=== PATIENT | female | born 1990 | race Two or more races ===

== ENCOUNTER 2024-01-21 08:25 | Emergency (ER) | payer MEDICAID, OTHER ==
[~2024-01-21] VITALS: Ht 165.1 cm; Wt 63.0 kg
--- NOTE | 2024-01-21 08:51 | ED.PDOC ---
History of Present Illness HPI Comments 33 year old female presents to the ED with chief complaint of chest pain. Patient reports that she has been experiencing left sided intermittent chest pain for approximately a month now. Patient relays that her pain is notably worsened when under stress or feeling anxious. Patient denies any SOB, dizziness, cough, headache, N/V, or blurred vision. Chief Complaint: Chest Pain Time Seen by MD: 08:49 Reviewed Notes: Nurses Notes, Medications, Allergies Allergies: Coded Allergies: NO KNOWN ALLERGIES (Unverified , 01/21/24) Information Source: Patient Mode of Arrival: Ambulatory Severity: Moderate Timing: Months Duration: Intermittent Prehospital treatment: None Past Medical History PAST MEDICAL HISTORY: Denies Surgical History: Denies all surgeries COPYING MACHINE MECHANIC History: No Pertinent COPYING MACHINE MECHANIC History Family History Family History: Reviewed,noncontributory to illness Social History Smoker: Non-Smoker Alcohol: Denies ETOH Use Drugs: Denies Drug Use Lives In: Home Constitutional: denies: chills, diaphoresis, fatigue, fever, malaise, sweats, weakness, others EENTM: denies: blurred vision, double vision, ear bleeding, ear discharge, ear drainage, ear pain, ear ringing, eye pain, eye redness, hearing loss, mouth pain, mouth swelling, nasal discharge, nose bleeding, nose congestion, nose pain, photophobia, tearing, throat pain, throat swelling, voice changes, others Respiratory: denies: cough, hemoptysis, orthopnea, SOB at rest, shortness of breath, SOB with excertion, stridor, wheezing, others Cardiovascular: reports: chest pain; denies: dizzy spells, diaphoresis, Dyspnea on exertion, edema, irregular heart beat, left arm pain, lightheadedness, palpitations, PND, syncope, others Gastrointestinal: denies: abdomen distended, abdominal pain, blood streaked bowels, constipated, diarrhea, dysphagia, difficulty swallowing, hematemesis, melena, nausea, poor appetite, poor fluid intake, rectal bleeding, rectal pain, vomiting, others Genitourinary: denies: abnormal vagina bleeding, burning, dyspareunia, dysuria, flank pain, frequency, hematuria, incontinence, pain, , vagina discharge, urgency, others Neurological: denies: dizziness, fainting, headache, left sided numbness, left sided weakness, numbness, paresthesia, pre-existing deficit, right sided numbness, right sided weakness, seizure, speech problems, tingling, tremors, weakness, others Musculoskeletal: denies: back pain, gout, joint pain, joint swelling, muscle pain, muscle stiffness, neck pain, others Integumetry: denies: bruises, change in color, change in hair/nails, dryness, laceration, lesions, lumps, rash, wounds, others Allergic/Immunocompromised: denies: Difficulty Healing, Frequent Infections, Hives, Itching, others Hematologic/Lymphatic: denies: anemia, blood clots, easy bleeding, easy bruising, swollen glands, others Endocrine: denies: excessive hunger, excessive sweating, excessive thirst, excessive urination, flushing, intolerance to cold, intolerance to heat, unexplained weight gain, unexplained weight loss, others Psychiatric: reports: anxiety; denies: bipolar disorder, depression, hopeless, panic disorder, schizophrenia, sleepless, suicidal, others All Other Systems: Reviewed and Negative Physical Exam General Appearance: Moderate Distress, Normal HEENT: Normal ENT Inspection, PERRL/EOMI Neck: Full Range of Motion, Non-Tender, Normal, Normal Inspection Respiratory: Chest Non-Tender, Lungs Clear, No Accessory Muscle Use, No Respiratory Distress, Normal Breath Sounds Cardiovascular: No Edema, No JVD, No Murmur, No Gallop, Normal Peripheral Pulses, Regular Rate/Rhythm Breast Exam: Deferred Gastrointestinal: No Organomegaly, Non Tender, No Pulsatile Mass, Normal Bowel Sounds, Soft Genitalia: Deferred Pelvic: Deferred Rectal: Deferred Extremities: No calf tenderness, Normal capillary refill, Normal inspection, Normal range of motion, Non-tender, No pedal edema Musculoskeletal : Apperance: Normal Neurologic: Alert, cabinet assembler II-XII nml as Tested, No Motor Deficits, Normal Affect, Normal Mood, No Sensory Deficits Cerebellar Function: Normal Reflexes: Normal Skin: Dry, Normal Color, Warm Peripheral Pulses: 3+ Radial (R), 3+ Radial (L) Lymphatic: No Adenopathy Was a procedure done? Was a procedure done?: No Differential Dx Considerations may include: Anxiety Electrolyte imbalance X-Ray, Labs, Meds, VS Vital Signs Date Time Temp Pulse Resp B/P (MAP) Pulse Ox O2 Delivery O2 Flow Rate FiO2 01/21/24 13:20 76 18 125/78 (94) 99 01/21/24 09:28 74 01/21/24 09:02 97.9 82 17 123/83 (96) 99 97.9 01/21/24 09:02 74 17 99 Room Air* 0 21 01/21/24 08:47 80 01/21/24 08:43 97.9 89 18 122/87 (99) 99 Lab Test 01/21/24 08:34 Range/Units White Blood Count 5.2 4.4-10.8 10^3/uL Red Blood Count 4.42 4.0-5.20 10^6/uL Hemoglobin 13.7 12.2-16.2 g/dL Hematocrit 39.4 36.0-46.0 % Mean Corpuscular Volume 89.3 80.0-100.0 fL Mean Corpuscular Hemoglobin 30.9 28.0-32.0 pg Mean Corpuscular Hemoglobin Concent 34.6 32.0-36.0 g/dL Red Cell Distribution Width 15.1 H 11.8-14.3 % Platelet Count 292 140-450 10^3/uL Mean Platelet Volume 7.7 6.9-10.8 fL Neutrophils (%) (Auto) 60.0 37.0-80.0 % Lymphocytes (%) (Auto) 29.6 10.0-50.0 % Monocytes (%) (Auto) 9.3 0.0-12.0 % Eosinophils (%) (Auto) 0.5 0.0-7.0 % Basophils (%) (Auto) 0.6 0.0-2.0 % Neutrophils # (Auto) 3.1 1.6-8.6 10 ^3/uL Lymphocytes # (Auto) 1.5 0.4-5.4 10 ^3/uL Monocytes # (Auto) 0.5 0-1.3 10 ^3/uL Eosinophils # (Auto) 0 0-0.8 10 ^3/uL Basophils # (Auto) 0 0-0.2 10 ^3/uL Nucleated Red Blood Cells 0.0 % Troponin I High Sensitivity < 3 L </=34 ng/L Patient alert. Came in because of chest discomfort. Vitals stable. Answering all questions. EKG reviewed does not show any acute process. Possible anxiety. WBC within normal limits. Hemoglobin within normal limits. Saturation pristine on room air. Cardiac marker within normal limits. Explained to the patient. Was told to follow up with her primary care physician. Was told to come back if there is any problem. Time of 1ST Reevaluation: 09:49 Reevaluation 1ST: Unchanged Patient Education/Counseling: Diagnosis, Treatment Family Education/Counseling: No Family Present Departure 1 Departure Time of Disposition: 12:52 Impression: Primary Impression: Musculoskeletal chest pain Additional Impression: Anxiety Disposition: 01 HOME / SELF CARE / HOMELESS Condition: Good Discharged With: Self Critical Care Note Critical Care Time?: No Stability Stability form required: No Heart Score Heart Score: Heart Score Response (Comments) Value History Moderate Suspicious 1 EKG Normal 0 Age <45 0 Risk Factors No known risk factors 0 Troponin Normal limit 0 Total 1 I personally scribed for GEM MCCLOUD MD ([email or web address]) on 01/21/24 at 08:51. Electronically submitted by Blayne Gonzalez ([email or web address]). GEM MCCLOUD MD Jan 21, 2024 08:51
[2024-01-21 09:02] VITALS: PULSE 74; RESP 17; TEMP 97.9; O2SAT 99
[2024-01-21 09:05] LABS: Basophils # (auto) 0 10 ^3/uL (0-0.2); Basophils % (auto) 0.6 % (0.0-2.0); Eosinophils # (auto) 0 10 ^3/uL (0-0.8); Eosinophils % (auto) 0.5 % (0.0-7.0); Hematocrit 39.4 % (36.0-46.0); Hemoglobin 13.7 g/dL (12.2-16.2); Lymphocytes # (auto) 1.5 10 ^3/uL (0.4-5.4); Lymphocytes % (auto) 29.6 % (10.0-50.0); Mean Corpuscular Hemoglobin 30.9 pg (28.0-32.0); Mean Corpuscular Hgb Conc. 34.6 g/dL (32.0-36.0); Mean Corpuscular Volume 89.3 fL (80.0-100.0); Monocytes # (auto) 0.5 10 ^3/uL (0-1.3); Monocytes % (auto) 9.3 % (0.0-12.0); Neutrophils # (auto) 3.1 10 ^3/uL (1.6-8.6); Platelet Count (auto) 292 10^3/uL (140-450); Red Blood Cells 4.42 10^6/uL (4.0-5.20); Red Cell Distribution Width 15.1 % (11.8-14.3); White Blood Cell 5.2 10^3/uL (4.4-10.8)
[2024-01-21] MEDS: ASPirin 325 MG TAB PO ONE (09:05)
[2024-01-21 13:20] VITALS: BP 125/78; PULSE 76; RESP 18; O2SAT 99
--- NOTE | 2024-01-21 19:00 | ECG ---
[facility] Test Date: 2024-01-21 Test Time: 09:28:50 Pat Name: SHA DE LA CRUZ Department: ED Room: Gender: F Art Educator: JONY : 1990 Requested By: GEM MCCLOUD Order Number: [id number] Reading MD: Chong Garcia Measurements Intervals Andreas Rate: 74 P: 59 OK: 129 QRS: -19 QRSD: 83 T: 16 QT: 373 QTc: 414 Interpretive Statements Sinus rhythm Probable left atrial enlargement Borderline left axis deviation Low voltage, precordial leads Electronically Signed On 01-27-2024 13:22:33 PST by Chong Garcia Please click the below link to view image of tracing.
--- NOTE | 2024-01-24 13:52 | ECG ---
[facility] Test Date: 2024-01-21 Test Time: 08:30:49 Pat Name: SHA DE LA CRUZ Department: ER Room: Gender: F Alliances Consultant: DEL : 1990 Requested By: GEM MCCLOUD Order Number: [id number] Reading MD: Chong Garcia Measurements Intervals [place] Rate: 80 P: 59 OH: 134 QRS: -38 QRSD: 84 T: 24 QT: 374 QTc: 432 Interpretive Statements Sinus rhythm Probable left atrial enlargement Left axis deviation Low voltage, precordial leads RSR' in V1 or V2, probably normal variant Borderline T abnormalities, anterior leads Electronically Signed On 01-27-2024 13:22:04 PST by Chong Garcia Please click the below link to view image of tracing.
== END 2024-01-21 13:24 | disposition home or self-care (01) ==
LOC: ER 08:25
DX: R07.89 Other chest pain (principal); F41.9 Anxiety disorder, unspecified
CPT/HCPCS: 36415; 84484; 85025; 93005

== ENCOUNTER → 2024-02-22 | Outpatient (CLI) | payer MEDICAID ==
[2024-02-22 08:24] VITALS: BP 124/76; PULSE 76; RESP 16
--- NOTE | 2024-02-22 08:52 | DVHCARD ---
Cardiology Stress Test [place] Treadmill Stress Test [place] Referring MD: Daniella Montesinos MD Protocol: Miguel (without cardiolite) Reason for referral: Chest Pain Target heart Rate:@85%: 160 Percent MPHR: 189 METS: 10.10 Resting Heart rate: 76 Resting Blood Pressure: 124/76 Exercise Heart Rate: 141 Exercise Blood Pressure: 183/88 Reason for Termination of Test: Completion of Protocol Baseline EKG: NSR Stress EKG: Sinus tachycardia w/o discernible ST-segment changes Functional Capacity: Good Normal Heart Rate Response: Adequate Blood Pressure Response: Hypertensive Clinical response: Non-ischemic Arrhythmia?: No Cardiolite Injected?: No ST-T Changes: Non/Minimal Probability of Inducible Ische: Low Comments: Uneventful miguel protocol. Optimal functional capacity. Date of Service: Feb 22, 2024 Billing Provider: DANIELLA MONTESINOS MD Cardiology Common Codes: PROCEDURE ONLY Treadmill w/o Cardiolite: [id number], INTERP, RPT [facility] Feb 22, 2024 08:52
== END | disposition home or self-care (01) ==
LOC: XYW 08:12
PROVIDERS: ATTEND Student in an Organized Health Care Education/Training Program
DX: R00.0 Tachycardia, unspecified (principal); R07.9 Chest pain, unspecified
CPT/HCPCS: 93017

== ENCOUNTER → 2024-12-29 | Outpatient (CLI) | payer MEDICAID ==
[2024-12-29 10:29] LABS: Hematocrit 31.1 % (36.0-46.0); Hemoglobin 10.1 g/dL (12.2-16.2); Mean Corpuscular Hemoglobin 27.2 pg (28.0-32.0); Mean Corpuscular Volume 83.4 fL (80.0-100.0); Nucleated Red Blood Cells % 0.1 %
[2024-12-30 17:07] LABS: Chlamydia Trachomatis, NAA Negative (Negative); Neisseria gonorrhoeae, NAA Negative (Negative)
== END | disposition home or self-care (01) ==
LOC: LAB 10:11
PROVIDERS: ATTEND Obstetrics & Gynecology
DX: Z34.83 Encounter for supervision of other normal pregnancy, third trimester (principal); Z3A.00 Weeks of gestation of pregnancy not specified
CPT/HCPCS: 36415; 85025; 86780

== ENCOUNTER 2025-01-17 06:52 | Inpatient (IN) | payer MEDICAID ==
[~2025-01-17] VITALS: Ht 30.5 cm; Wt 0.5 kg
[2025-01-17 10:27] LABS: Hemoglobin 9.9 g/dL (12.2-16.2)
[2025-01-17 10:29] LABS: Hematocrit 29.8 % (36.0-46.0); Mean Corpuscular Hemoglobin 27.2 pg (28.0-32.0); Mean Corpuscular Volume 82.3 fL (80.0-100.0); Nucleated Red Blood Cells % 0.1 %
[2025-01-17 10:42] LABS: INR 0.89 (0.9-1.15); Partial Thromboplastin Time 24.5 SEC (24.5-34.5); Prothrombin Time 9.5 sec (9.3-11.8)
[2025-01-17 10:45] LABS: Albumin 3.7 g/dL (3.2-4.8); Anion Gap 11 (5-15); BUN/Creatinine Ratio 12.2 (10.0-20.0); Blood Urea Nitrogen 9 mg/dL (9-23); Calcium 8.7 mg/dL (8.7-10.4); Carbon Dioxide 23 mmol/L (20-31); Chloride 105 mmol/L (98-107); Glucose 82 mg/dL (74-106); Potassium 3.8 mmol/L (3.5-5.1); Sodium 139 mmol/L (136-145); Total Protein 6.6 g/dL (5.7-8.2)
[2025-01-17 10:46] LABS: Bilirubin, Total 0.3 mg/dL (0.2-1.0)
[2025-01-17 10:48] LABS: Alanine Aminotransferase < 9 U/L (7-40); Alkaline Phosphatase 181 U/L (46-116)
[2025-01-17 11:16] LABS: Urine Protein, UAD TRACE (Negative)
[2025-01-17 11:38] LABS: Amphetamine Screen, Urine Neg (NEGATIVE); Barbiturate Scree,Urine Neg (NEGATIVE); Benzodiazephine Screen, Urine Neg (NEGATIVE); Cannabinoid Screen, Urine Neg (NEGATIVE); Cocaine Screen, Urine Neg (NEGATIVE); Opiate Scree,Urine Neg (NEGATIVE); Phencyclidine Screen, Urine Neg (NEGATIVE)
[2025-01-18 21:33] LABS: Protein, Urine 26.1 mg/dL (1-14)
[2025-01-19] VITALS (14 sets, daily range): BP systolic 90–118; BP diastolic 48–70; PULSE 52–74; RESP 14–60; TEMP 98–98.7; O2SAT 95–100
--- NOTE | 2025-01-19 07:04 | DVHHP2 ---
OB CC & HPI Date Date of Admission: Jan 19, 2025 Patient Identification: : 3 Para: 2 EDC: Jan 28, 2025 EGA: 38+WKS Chief Complaints: Reason for admission: other (LABOR) Indication for : desires repeat Admission Nurse Assessment Rev: No History of Present Complaints PT IS ADMITTED FOR RCS ,SHE IS IN EARLY LABOR AND DESIRES TO HAVE RCS Past Medical History Cardiac: No pertinent Hx Pulmonary: No pertinent Hx Central Nervous System: No pertinent Hx GI: No pertinent Hx Hemotology/Oncology: No pertinent Hx Hepatobiliary: No pertinent Hx Psychiatric: No pertinent Hx Musculoskeletal: No pertinent Hx Rheumotologic: No pertinent Hx Infectious Disease: No peritnent Hx ENT: No pertinent Hx Renal/: No pertinent Hx Endocrine: No pertinent Hx Dermatology: No pertinent Hx Past Surgical History: OB History OB History Care: Good Care Ultrasounds: Normal mid trimester US Obstetrical Complications: None Medical Complications: None Allergies: Coded Allergies: NO KNOWN ALLERGIES (Unverified , 01/21/24) Current Medications Current Medications Medications (Trade) Dose Ordered Sig/Jeff Route PRN Reason Start Time Stop Time Status Last Admin Lactated Ringer's 1,000 ml @ 125 mls/hr Q8H IV 01/19/25 06:30 Family & Social History Family/Social History Blood Type: Unknown Rubella: unknown RPR/VDRL: Negative GBS Status: Negative HBsAG: Negative Review of Systems Constitutional: No symptom reported Ears, Nose, & Throat: No symptom reported Eyes: No symptom reported Pulmonary/Respiratory: No symptom reported Cardiovascular: No symptom reported Gastrointestinal: No symptom reported Genitourinary: No symptom reported Musculoskeletal: No symptom reported Skin: No symptom reported Psychiatric: No symptom reported Endocrine: No symptom reported Hemotologic/Lymphatic: No symptom reported OB Admission Exam Physical Exam HEENT: TMs Normal, Fontanelles Normal, Nasal Mucosa Normal, Eyes non-injected, Oropharynx Normal, PERRLA, Moist Membranes, EOMI Heart: Rhythm Normal Lungs: Clear Abdomen: Non tender Extremities: Normal Reflexes: Normal Cervical Dilatation: 1cm Effacement: 25% Station: -3 Membranes: Intact Heart Rate: 130's Accelerations: Accelerations Present Decelerations: No Decelerations Short Term Variability: Present Scow Derrick Operator Variability: Average (6-25) Contractions on Admission: 6-10 Minutes Apart Intensity: Moderate OB Plan Plan Admitting Diagnosis: repeat IN EARLY LABOR Plan: Section Other Plan: INFORMED CONSENT OBTAINED Visit Coding OBGYN Date of Service: Jan 19, 2025 Billing Provider: JOSEFA GOLDSMITH DO PAN WASHER HAND Common Visit Codes: 70417-UHGYQPI INP/OBS CARE (HIGH) PAN WASHER HAND Procedure Codes: 08397-49- NON-STRESS TEST JOSEFA GOLDSMITH DO Jan 19, 2025 07:04
[2025-01-19] MEDS: TETRACAINE 1% INJ 2 ML VIAL IJ ONE (09:33)
[2025-01-19] MEDS ORDERED: MIDAZOLAM HCL 2MG/2ML 2ml VIAL (1mg/ml) ONE (09:38)
[2025-01-19] MEDS ORDERED: fentaNYL CITRATE 100 MCG/2 ML VL ONE (09:38)
[2025-01-19] MEDS ORDERED: ONDANSETRON HCL 4 MG/2 ML VIAL ONE (09:39)
[2025-01-19] MEDS ORDERED: SODIUM CHLORIDE LOCK 10 ML ONE (09:39)
[2025-01-19] MEDS ORDERED: MORPHINE SULF PF 5 MG/10 ML VIAL ONE (09:39)
[2025-01-19] MEDS: LACTATED RINGER'S 1,000 ML IV SCH (09:55)
[2025-01-19] MEDS: ceFAZolin 2 GM/D5W50ml 50 ML IV ONE (09:55)
[2025-01-19] MEDS ORDERED: BUPIVACAINE/DEXTROSE MPF 0.75% 2 ML AMP IT ONE (09:56)
[2025-01-19] MEDS ORDERED: METOCLOPRAMIDE HCL 5MG/ml INJ 2ml VIAL IV PRN (11:15)
[2025-01-19] MEDS ORDERED: NALOXONE HCL 0.4 MG/ML VIAL IV PRN (11:15)
[2025-01-19] MEDS ORDERED: MORPHINE SULFATE 4 MG/ML SYR/VIAL IV PRN (11:15)
[2025-01-19] MEDS ORDERED: MORPHINE SULFATE INJ 2 MG/ml SYRG IV PRN (11:15)
[2025-01-19] MEDS ORDERED: HYDROmorphone HCL 2 MG/ML VL/or syr IV PRN ×2 (11:15)
[2025-01-19] MEDS: KETOROLAC TROMETH 30 MG/ML 1ML VIAL IV ONE (11:15)
[2025-01-19] MEDS ORDERED: diphenhydrAMINE HCL 50 MG/1 ML VL IV PRN (11:15)
--- NOTE | 2025-01-19 13:13 | DVHOP2 ---
Operative Report DATE OF OPERATION:01/19/25 PREOPERATIVE DIAGNOSES: [iup at 38+wks in labor,previous csx1 desires rcs] POSTOPERATIVE DIAGNOSES: [same] OPERATION PERFORMED: Repeat Section FINDINGS: [b] infant. Apgars of [8] and [9]. Weight [clear] crying tone. [good] amniotic fluid. Placenta and three-vessel were intact. Normal tubes, ovaries, and uterus. SURGEON: Deidre Marshall D.O. DOGMAN/WOMAN: railway signal technician, darlene]. ANESTHESIOLOGIST: Ophelia orr ANESTHESIA: [Duramorph spinal, regional]. COMPLICATIONS: [none]. ESTIMATED BLOOD LOSS: [500] mL. BLOOD PRODUCTS USED: [none]. PROCEDURE IN DETAIL: The patient was taken to the operating room, placed in sitting position, and spinal was placed without difficulty. She was then prepped and draped in a sterile fashion. A low Pfannenstiel incision was made scapel. At this point, it was carried down through the rectus fascia, nicked in the midline, and carried laterally. The rectus muscles were in the midline. Peritoneum was identified and entered with sharp dissection. Vesicouterine peritoneum was taken off the lower uterine segment. A lower uterine transverse incision was made with a scalpel down the chorionic membranes, ruptured with hemostat. was in vertex position. One hand was placed in the lower uterine segment. Head was essentially delivered spontaneously. Nose and mouth were bulb suctioned. Shoulders and torso were delivered without difficulty. Again, pharynx, nose, and mouth were re-suctioned with vigorous crying tone. Cord was cut. The infant was handed off to the awaiting Respiratory. At this point, umbilical blood sample was taken. Placenta was removed. Uterus was exteriorized, cleared off all clots and debris, irrigated, and closed with a double layer of 0-Vicryl. The vesicouterine peritoneum was incorporated into this closure. We had complete hemostasis. EBL was [500] mL. The instrument, lap, and sponge count was correct x1. The uterus was placed back into the peritoneum. The peritoneal cavity was re-inspected and the lower uterine incision with good hemostasis. We closed the peritoneum with running continuous of 2-0 Vicryl. The Rectus Fascia was closed with 0-PDS, running continuous, looped-0. The skin was closed undermined, irrigated, and close with basilio. CONDITION: The patient's and the infant's condition is stable and but guarded. Visit Coding OBGYN Date of Service: Jan 19, 2025 Billing Provider: DEIDRE MARSHALL DO SPORTS BOOK BOARD ATTENDANT Common Visit Codes: 80327-CZGTQDC OBS CARE (HIGH) SPORTS BOOK BOARD ATTENDANT Procedure Codes: [id number] DELIVERY ONLY DEIDRE MARSHALL DO Jan 19, 2025 13:13
--- NOTE | 2025-01-19 13:15 | POSTOP ---
Post-Operative Note Post-Operative Note Preop Diagnosis iup at 38wks in labor,desires rcs Postop Diagnosis: same Operation performed rcs Specimen baby boy,apgars 8-9,vx Anesthesia: Regional Anesthesiologist: spinal Blood Loss(fluid mgmt) 500ml Surgeon Josefa Marshall Jig And Fixture Maker luis angel Implant na Complications & Mgmt none Date 01/19/25 Time 13:13 Visit Coding OBGYN Date of Service: Jan 19, 2025 Billing Provider: JOSEFA MARSHALL DO RAILWAY SIGNAL TECHNICIAN Common Visit Codes: 71224-SLWMEDF OBS CARE (HIGH) RAILWAY SIGNAL TECHNICIAN Procedure Codes: [id number] DELIVERY ONLY JOSEFA MARSHALL DO Jan 19, 2025 13:15
[2025-01-19] MEDS ORDERED: HYDR-4072 PO (13:41)
[2025-01-19] MEDS ORDERED: IBUP-1456 PO (13:41)
[2025-01-19] MEDS ORDERED: DOCU-94 PO (13:41)
[2025-01-19] MEDS: LACTATED RINGER'S 1,000 ML IV ONE (15:38)
[2025-01-19] MEDS: ACETAMINOPHEN IV 1000 MG/100ML (10MG/ML) IV PRN (17:19)
[2025-01-19] MEDS: ceFAZolin 1GM/50ML 50 ML IV SCH (18:40)
[2025-01-20] VITALS (14 sets, daily range): BP systolic 91–117; BP diastolic 52–75; PULSE 59–69; RESP 14–20; TEMP 98.1–98.6; O2SAT 96–100
--- NOTE | 2025-01-20 06:45 | DVHPN2 ---
Progress Note Date Seen: Jan 20, 2025 Subjective PP Note C- Section 34 y/o now (3,0,0,3) Post operative & ppd # 1 s/p Repeat Section and doing well. Delivery of viable male 01/19/2025 @ 1024 Total QBL 650 Subjective Lochia minimal. Advancing Clear liquid Ji removed Pain relieved with IV analgesics. Passing flatus but no BM yet. Formula feeding infant Objective Afebrile, VSS Chest: heart and lung sounds normal. Breasts: Nipples intact w/o cracks or soreness Abdomen: soft, moderate tenderness with palpation , mild rebound fundus firm @ Umbilicus -1, Lower abdominal Incision site with Sylke dressing clean, dry and intact. Edges in good approximation. No edema, erythema or induration, no saturation noted Extremities: no edema or tenderness Lochia - minimal Labs Assessment/Plan: Blood Type: O Rh: Positive Formula feeding Rubella Non Immune GBS:Unknown Pain control with IV Medications Bowel regimen: Increase fluid intake and fiber in diet, Laxative PRN PP BCM Plan: Continue with p.o.c vital signs Vital Sign Date Time Temp Pulse Resp B/P (MAP) Pulse Ox O2 Delivery O2 Flow Rate FiO2 01/20/25 05:00 62 15 100/62 (75) 99 01/19/25 23:00 98.3 98.3 01/19/25 19:00 Room Air 01/19/25 11:08 0 01/19/25 11:08 99 Total Intake and Output 01/19/25 01/19/25 01/20/25 15:00 23:00 07:00 Output Total 1380 ml 1400 ml Balance -1380 ml -1400 ml medications Current Medications Medications Dose Ordered Sig/Jeff Route Start Time Stop Time Status Last Admin Dose Admin Lactated Ringer's 1,000 ml @ 125 mls/hr Q8H IV 01/19/25 06:30 01/20/25 02:21 125 MLS/HR Diphenhydramine HCl 25 mg Q4HP PRN IV 01/19/25 11:15 Acetaminophen 1,000 mg Q8H PRN IV 01/19/25 16:00 01/19/25 17:19 1,000 MG Cefazolin Sodium 50 ml @ 100 mls/hr Q8HR IV 01/19/25 18:00 01/20/25 02:17 100 MLS/HR laboratory and microbiology Laboratory Tests 01/17/25 09:55 Test 01/17/25 09:55 Range/Units Serum Glucose 82 74-106 mg/dL Objective O: AFVSS Chest: heart and lung sounds normal. Abd soft, non-tender, fundus firm, BS, no rebound or guarding, Incision - dressing and incision clean, dry, intact Ext Neg Homans, Non-tender, edema Lochia - minimal Labs Problems(with codes): (1) Status post repeat low transverse section Assessment/Plan __ yo G_P_ ppd#_ s/p /VAVD doing well. Rh status +/- Rhophylac Breast/bottle feeding Rubella status if needs MMR prior to d/c Pain control with PO medications Bowel regimen Discharge plan: [ ] Plan discussed with: Patient Visit Coding OBGYN Date of Service: Jan 20, 2025 Billing Provider: KARIS JARVIS CNM MERCHANDISE DIRECTOR Common Visit Codes: 22739-[id number] OBS CARE (HIGH), 53086-MMKOBMQ INP/OBS CARE (LOW) KARIS JARVISMNov 2024 06:45
[2025-01-20 09:23] LABS: Hematocrit 28.7 % (36.0-46.0); Hemoglobin 9.4 g/dL (12.2-16.2); Mean Corpuscular Hemoglobin 27.0 pg (28.0-32.0); Mean Corpuscular Volume 82.5 fL (80.0-100.0); Nucleated Red Blood Cells % 0.0 %
[2025-01-20] MEDS ORDERED: IBUPROFEN 800 MG TAB PO PRN (10:30)
[2025-01-20] MEDS ORDERED: HYDROcodone-ACET 5/325MG TAB PO PRN ×2 (10:30)
[2025-01-20] MEDS: SIMETHICONE 80 MG CHEWABLE TABLET PO SCH (11:42)
[2025-01-20] MEDS: DOCUSATE SOD 100 MG CAP PO SCH (22:20)
[2025-01-21 03:00] VITALS: BP 110/70; PULSE 72; RESP 18; TEMP 98; O2SAT 96
[2025-01-21 07:30] VITALS: BP 108/75; PULSE 96; RESP 17; TEMP 98; O2SAT 97
[2025-01-21 11:30] VITALS: BP 112/73; PULSE 79; RESP 16; TEMP 98; O2SAT 96
--- NOTE | 2025-01-21 11:31 | DVHDS2 ---
Discharge Summary Date of Admission Jan 19, 2025 at 06:18 Date of Discharge: Jan 21, 2025 Admitting Diagnosis 38+ week previous -section Wounds: Clean dry intact Labs/Diagnostic Data: Laboratory Results Test 01/20/25 08:30 01/17/25 09:55 01/17/25 09:10 White Blood Count 8.5 10^3/uL (4.4-10.8) Red Blood Count 3.48 10^6/uL (4.0-5.20) Hemoglobin 9.4 g/dL (12.2-16.2) Hematocrit 28.7 % (36.0-46.0) Mean Corpuscular Volume 82.5 fL (80.0-100.0) Mean Corpuscular Hemoglobin 27.0 pg (28.0-32.0) Mean Corpuscular Hemoglobin Concent 32.7 g/dL (32.0-36.0) Red Cell Distribution Width 15.3 % (11.8-14.3) Platelet Count 228 10^3/uL (140-450) Mean Platelet Volume 8.6 fL (6.9-10.8) Neutrophils (%) (Auto) 75.0 % (37.0-80.0) Lymphocytes (%) (Auto) 17.3 % (10.0-50.0) Monocytes (%) (Auto) 7.3 % (0.0-12.0) Eosinophils (%) (Auto) 0.2 % (0.0-7.0) Basophils (%) (Auto) 0.2 % (0.0-2.0) Neutrophils # (Auto) 6.4 10 ^3/uL (1.6-8.6) Lymphocytes # (Auto) 1.5 10 ^3/uL (0.4-5.4) Monocytes # (Auto) 0.6 10 ^3/uL (0-1.3) Eosinophils # (Auto) 0 10 ^3/uL (0-0.8) Basophils # (Auto) 0 10 ^3/uL (0-0.2) Nucleated Red Blood Cells 0.0 % Prothrombin Time 9.5 sec (9.3-11.8) Prothrombin Time INR 0.89 (0.9-1.15) Activated Partial Thromboplast Time 24.5 SEC (24.5-34.5) Sodium Level 139 mmol/L (136-145) Potassium Level 3.8 mmol/L (3.5-5.1) Chloride Level 105 mmol/L (98-107) Carbon Dioxide Level 23 mmol/L (20-31) Anion Gap 11 (5-15) Blood Urea Nitrogen 9 mg/dL (9-23) Creatinine 0.74 mg/dL (0.550-1.02) Glomerular Filtration Rate Calc 110 mL/min (>90) BUN/Creatinine Ratio 12.2 (10.0-20.0) Serum Glucose 82 mg/dL (74-106) Uric Acid 4.3 mg/dL (3.1-7.8) Calcium Level 8.7 mg/dL (8.7-10.4) Total Bilirubin 0.3 mg/dL (0.2-1.0) Aspartate Amino Transferase (AST) 15 U/L (13-40) Alanine Aminotransferase (ALT) < 9 U/L (7-40) Alkaline Phosphatase 181 U/L (46-116) Total Protein 6.6 g/dL (5.7-8.2) Albumin 3.7 g/dL (3.2-4.8) Treponema pallidum Antibody Non-reactive (Negative) Hepatitis C Antibody Negative (Negative) Urine Color Yellow (Yellow) Urine Clarity Turbid (Clear) Urine pH 6.0 (5.0-9.0) Urine Specific [place] 1.028 (1.001-1.035) Urine Protein Trace (Negative) Urine Ketones Negative (Negative) Urine Blood Negative /uL (Negative) Urine Nitrite Negative (Negative) Urine Bilirubin Negative (Negative) Urine Urobilinogen Normal mg/dL (Negative) Urine Leukocyte Esterase 3+ /uL (Negative) Urine RBC 1 /hpf (0 - 4) Urine Microscopic WBC 4 /HPF (0-5) Urine Squamous Epithelial Cells Mod /hpf (<5) Urine Bacteria None seen /hpf (None Seen) Urine Mucus Few (None Seen) Urine Creatinine 201.39 mg/dL (30.0-125.0) Urine Protein/Creatinine Ratio 0.13 Urine Glucose Normal mg/dL (Normal) Urine Total Protein 26.1 mg/dL (1-14) Urine Opiates Screen Neg (NEGATIVE) Urine Fentanyl Screen Neg (NEGATIVE) Urine Barbiturates Screen Neg (NEGATIVE) Urine Phencyclidine Screen Neg (NEGATIVE) Urine Amphetamines Screen Neg (NEGATIVE) Urine Benzodiazepines Screen Neg (NEGATIVE) Urine Cocaine Screen Neg (NEGATIVE) Urine Cannabinoids Screen Neg (NEGATIVE) Other Laboratory Tests 01/20/25 08:30 01/17/25 09:55 Brief Hx & Hospital Course: Patient had no intraoperative or postop complications stable for discharge postop day 2 Operations or Procedures Repeat -section Condition at Discharge: Good Final Diagnosis/Problems List same Discharge Disposition: Home Discharge Instruct/Medications Diet: Regular Activity: Light activity Activity comment: Pelvic rest 6 weeks Follow Up/Referral: See primary surgeon for follow up 2 weeks or p.r.n. pain Medications: Prescription sent to pharmacy patient to resume home meds Scheduled Docusate Sodium (Colace), 1 CAP PO BID Scheduled PRN Hydrocodone-Acetaminophen (Hydrocodone/Acetaminophen 10-325 mg), 1 TAB PO Q6HPRN PRN Ibuprofen (Ibuprofen), 800 MG PO TID PRN Discharge Statement: "Patient was advised to return to the ER or call 911 if any headaches, dizziness, shortness of breath, chest pain, abdominal pain, bleeding, fevers, or worsening of medical condition. Patient was counseled about treatment plan, medications, possible side effects, patientverbalized understanding. All questions were answered to the best of my ability. This discharge took greater then 30 minutes in planning, reviewing documentation, counseling the patient, and discussing with other team members." ASSESSMENT ASSESSMENT Assessment same Visit Coding OBGYN Date of Service: Jan 21, 2025 Billing Provider: SANTO DON DO AUTOMOBILE DEALER Common Visit Codes: 96288-HYY/OBS SAME DATE (LOW), 33885-JLC/OBS SAME DATE (MOD), 85209-DLW/OBS SAME DATE (HIGH) AUTOMOBILE DEALER Procedure Codes: [id number] OB CARE, DEL SANTO DON DO Jan 21, 2025 11:31
[2025-01-21 15:32] VITALS: BP 112/73; PULSE 79; RESP 16; TEMP 98; O2SAT 96
== END 2025-01-21 15:32 | disposition home or self-care (01) | DRG 540 ==
LOC: LDRP 01-19 06:18 → PREOBSVTOIN 01-19 06:22 → LDRP 01-19 10:27
PROVIDERS: ADMIT Obstetrics & Gynecology; ATTEND Obstetrics & Gynecology
PROC: 10D00Z1 Extraction of Products of Conception, Low, Open Approach (ICD-10-PCS; principal; 2025-01-19 10:04)
DX: O34.211 Maternal care for low transverse scar from previous cesarean delivery (principal); Z37.0 Single live birth; Z3A.38 38 weeks gestation of pregnancy
CPT/HCPCS: 36415; 59025; 80053; 80307; 81001; 81002; 82570; 84156; 84550; 85025; 85610; 85730; 86780; 86803; 86850; 86900; 86901; 94760; 94762; 96360; 96365; 96366; G0378; J0131; J2250; J2405; J2590